=== PATIENT | male | born 2005 | race African-American/Black ===

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

== ENCOUNTER 2025-01-08 16:18 | Emergency (ER) | payer MEDICAID ==
[~2025-01-08] VITALS: Ht 182.9 cm; Wt 64.0 kg
[~2025-01-08 16:18] MED LIST: IBUP-2028 MT
[2025-01-08 17:31] VITALS: O2SAT 99
[2025-01-08] MEDS: MIDAZOLAM HCL 2 MG/2 ML VIAL IV ONE (17:31)
[2025-01-08] MEDS: ONDANSETRON HCL 4MG/2ML INJ IV ONE (17:31)
[2025-01-08] MEDS: PROPOFOL 200MG/20ML VIAL IV PRN (17:31)
[2025-01-08 19:04] VITALS: BP 125/62; PULSE 95; RESP 12; TEMP 36.7; O2SAT 99
== END 2025-01-08 19:06 | disposition home or self-care (01) ==
LOC: ER 16:18
DX: S43.004A Unspecified dislocation of right shoulder joint, initial encounter (principal); X58.XXXA Exposure to other specified factors, initial encounter; Y93.89 Activity, other specified; Y92.89 Other specified places as the place of occurrence of the external cause; Y99.8 Other external cause status
CPT/HCPCS: 73030; 23650; 96374; 99152; 99285; J2250; J2405; J2704; Z7610

== ENCOUNTER 2025-03-17 08:27 | Emergency (ER) | payer MEDICAID ==
[~2025-03-17] VITALS: Ht 177.8 cm; Wt 63.5 kg
[2025-03-17 08:29] VITALS: O2SAT 99
[2025-03-17 08:31] VITALS: BP 124/84; PULSE 69; RESP 16; TEMP 36.6; O2SAT 99
[2025-03-17] MEDS ORDERED: NEOM1PAC6 TP (08:59)
== END 2025-03-17 09:18 | disposition home or self-care (01) ==
LOC: ER 08:27
DX: L03.032 Cellulitis of left toe (principal); Z79.899 Other long term (current) drug therapy
CPT/HCPCS: 99282

== ENCOUNTER 2025-06-17 23:32 | Emergency (ER) | payer MEDICAID, OTHER ==
[~2025-06-17] VITALS: Ht 177.8 cm; Wt 63.0 kg
[~2025-06-17 23:32] MED LIST changes: +NEOM1PAC6 TP
[2025-06-17 23:34] VITALS: O2SAT 98
[2025-06-18 00:19] VITALS: BP 120/85; PULSE 73; RESP 16; TEMP 36.9; O2SAT 100
== END 2025-06-18 03:44 | disposition left against medical advice (07) ==
LOC: ER 06-18 00:12
DX: R51.9 Headache, unspecified (principal); Z53.21 Procedure and treatment not carried out due to patient leaving prior to being seen by health care provider